=== PATIENT | female | born 1945 | race Caucasian/White ===

== ENCOUNTER → 2024-06-28 09:30 | Outpatient (REF) | payer OTHER, SELFPAY | LOC: RAD 09:30 | PROVIDERS: ATTENDING PHYSICIAN Thoracic Surgery (Cardiothoracic Vascular Surgery); FAMILY PHYSICIAN Internal Medicine | DX: Z01.810 Encounter for preprocedural cardiovascular examination (principal) | CPT/HCPCS: 75572; Q9967 ==

== ENCOUNTER 2024-07-13 04:57 | Inpatient (IN) | payer OTHER, SELFPAY ==
[2024-07-08 11:49] VITALS: BMI 22.2
[2024-07-08 13:01] LABS: % Basophils 0.5 % (0-2); % Eosinophils 1.5 % (0-6); % Immature Granulocytes 0.2 % (0-0.5); % Lymphocytes 39.9 % (20.5-51.1); % Neutrophils 47.9 % (42.2-75.2); Absolute Eosinophils 0.1 10^3/uL (0-0.7); Absolute Lymphocytes 2.4 10^3/uL (1.2-3.4); Absolute Monocytes 0.6 10^3/uL (0.1-0.6); Absolute Neutrophils 2.8 10^3/uL (1.4-6.5); Hematocrit 38.6 % (37.0-47.0); Hemoglobin 12.6 g/dL (12.0-16.0); Mean Corp Hgb Conc. 32.6 g/dL (33.0-37.0); Mean Corpuscular Hgb 28.7 pg (27.0-31.0); Mean Corpuscular Volume 87.9 fL (81.0-99.0); Mean Platelet Volume 9.6 fL (7.4-10.4); Nucleated Red Blood Cells % 0 %; Platelet Count 159 10^3/uL (130-400); Red Blood Cell Count 4.39 10^6/uL (4.20-5.40); Red Cell Dist. Width 13.6 % (11.5-14.5); White Blood Cell Count 5.9 10^3/uL (4.8-10.8)
[2024-07-08 13:05] LABS: Urine Albumin Negative (Neg - Trace); Urine Bilirubin Negative (Negative); Urine Character Clear (Clear); Urine Color Yellow; Urine Glucose Negative (Negative); Urine Ketone Negative (Negative); Urine Leukocyte Negative (Negative); Urine Nitrite Negative (Negative); Urine Occult Blood Negative (Negative); Urine Specific Gravity 1.005 (<1.030); Urine Urobilinogen Negative (Neg - 1+)
[2024-07-08 13:11] LABS: APTT 24.7 Sec (23.4-35.0); INR 0.99; PT 13.4 Sec (11.4-14.6)
--- NOTE | 2024-07-08 13:44 | CM ---
CM met w/ patient + dtrDai Cannon during PATs for planned CT Surg., 07/13.
Patient resides w/ spouse in a private, 2 AJIT.
Functionally, patient is indep. w/ ADLs, mobility with use of a SPC.
Pt. has RX plan and uses [facility] for prescription needs.
Pt. does not usually drive.
Reviewed pre and post op routines.
Soap, shower instructions and Cardiac Surg. booklet provided.
We reviewed post op restrictions to include lifting and driving.
We discussed post op MD appointments + visit from CT Transitional Care RN (if geographically available) v VN.
Plan is for CT Surgery 07/13.
Anticipated DC plan is for home w/ CT Transitional Care RN.
CM to follow.
[2024-07-08 14:18] LABS: ALT (SGPT) 29 U/L (0-35); AST (SGOT) 39 U/L (14-36); Albumin 4.4 g/dl (3.5-5.0); Alkaline Phosphatase 74 U/L (38-126); Blood Urea Nitrogen 14 mg/dl (7-17); Calcium 10.2 mg/dl (8.4-10.2); Carbon Dioxide 27 mmol/L (22-30); Chloride 105 mmol/L (98-107); Direct Bilirubin 0.4 mg/dl (0.0-0.4); Estimated Creatinine Clearance 59 ml/min; Glucose 83 mg/dl (70-99); Potassium 4.5 mmol/L (3.5-5.1); Sodium 142 mmol/L (135-145); Total Bilirubin 1.2 mg/dl (0.2-1.3); Total Protein 6.9 g/dl (6.3-8.2); eGFR > 60.00
[2024-07-08 14:21] LABS: Glycohemoglobin (HgbA1c) 5.7 % (4.0-5.6)
[2024-07-13] VITALS (20 sets, daily range): BP systolic 103–163; BP diastolic 56–80; BMI 22.1
[2024-07-13] MEDS: MAGNESIUM OXIDE 500 MG PO (05:29)
[2024-07-13] MEDS: LOPRESSOR 25 MG PO (05:29)
[2024-07-13] MEDS: PROTONIX 40 MG PO (05:29)
[2024-07-13] MEDS: BACTROBAN 2% OINTMENT 1 APPLIC NASAL ×2 (05:30→20:45)
--- NOTE | 2024-07-13 05:52 | PTCARENOTE ---
pt admitted to room 2267. VS and weight obtained. admission questions and med rec done. pt confirmed 2 showers at home and NPO since 0000. clip prep done, wiped w CHG wipes. pre-op meds given.
--- NOTE | 2024-07-13 06:07 | W.CVOR.SURPR ---
CVOR Surgeon Immed Pre Op
-
I have examined this patient prior to performance of the scheduled procedure.
The patient's condition is unchanged from the time of the dictated/written History and
Physical and the patient is able to undergo the scheduled procedure.
Robotic assisted right sided pericardial window for recurrent large pericardial effusions
[2024-07-13 08:15] LABS: Urine Albumin 1+ (Neg - Trace); Urine Bilirubin Negative (Negative); Urine Character Clear (Clear); Urine Color Yellow; Urine Glucose Negative (Negative); Urine Ketone Negative (Negative); Urine Leukocyte Negative (Negative); Urine Nitrite Negative (Negative); Urine Occult Blood Negative (Negative); Urine Urobilinogen Negative (Neg - 1+)
--- NOTE | 2024-07-13 08:25 | CM ---
Reviewed chart. Mrs. Rubio is in the operating room today. Prior to admission she resides with her spouse in a two story home with eight steps to enter. Prior to admission she was independent with adla and uses a single point cane to ambulate.
She has a single point cane at home. She has a prescription plan and uses [facility]. Medical work-up in progress. The discharge plan is to return home with her spouse and a home visit by the Transitional Care Nurse when medically stable.
--- NOTE | 2024-07-13 08:37 | W.PN.CT.SURG ---
CT Surgery Operative Note
-
CARDIAC SURGERY OPERATIVE REPORT
Preoperative Diagnosis: Recurrent pericardial effusion status post subxiphoid pericardial window
Postoperative Diagnosis: Same, large ASD, kajal plug leak with yrpa-ya-gbsmu shunt
Procedure(s) Performed:
1. Robotic assisted right side large pericardial window and pericardial drainage
2. Transesophageal echocardiography
Date of Surgery: 07/13/2024
Comorbidities:
1. Multivessel coronary artery disease with history of RCA stenting and inferior infarct
2. Ischemic cardiomyopathy
3. Hypertension
4. Hyperlipidemia
5. Chronic pericardial effusions status post subxiphoid window
6. History of PFO with percutaneous closure
7. Recurrent atrial septal defect next to the intra-atrial septal plug with large sugm-kn-jkhtm shunt
8. History of TIA
9. Frail
10. Hard of hearing
11. Recurrent pericarditis
Attending Surgeon: Sampson Joshi MD, MS
Assistants: Keira Edge PA-C (present and necessary to culture media laboratory assistant, exchanging robotic instruments, retraction, suction, exposure, suture management, and wound closure under my direction)
Anesthesiology: Alexander Downs MD and Jessica Jean CRNA
Scrub and Circulating RNs: Latrell Arias, RN, Suad Conrad, RN and Goyo Alejandra RN
Anesthesia: Dual Lumen GETA
EBL: 10 cc
Products: None
Indication(s) for Procedures: This is an 79-year-old female with a history of significant pericardial effusion of over 2 L. She had a recurrent effusion after being drained via subxiphoid window just a few years ago. Given the recurrent nature of
her effusions and symptomatology, plan was to do a robotic assisted pericardial window with drainage into the chest for symptomatic relief.
Findings: Intraoperative SMOOTH preprocedure demonstrated a large ASD of approximately 0.8 to 0.9 cm with a large kalh-qi-wgnho shunt into the right atrium. There was a moderate pericardial effusion surrounding the heart. Upon entry into the chest,
there was significant amount of redundancy of the pericardium secondary to the recurrent nature of her effusions. A large window was performed going from the ascending aorta down towards the diaphragmatic reflection at the level of the IVC. The
pericardial window performed was approximately 6 x 5 cm in size. Pericardial fluid was sent off for cytology and fluid analysis and her pericardial sac was sent off for permanent pathology.
Specimen(s):
Pericardial fluid and pericardial sac
Description of Procedure: The patient was taken to the operating room. Induction via general anesthesia with endotracheal intubation was performed and peripheral venous access and arterial monitoring were inserted. Their identity and procedure to be
performed were verified and they were positioned with the right side bumped up on the operating table. The patient was then prepped and draped in a sterile fashion. A preoperative time-out was performed with all members of the team present. A
Veress needle was used to insufflate the chest after isolating the lung. An 8 mm port was placed in the anterior axillary line at the second intercostal space towards the armpit and confirmed to be intrathoracic without significant pulmonary injury.
The chest was surveyed for any significant pericardial adhesions or pleural adhesions. Patient tolerate insufflation without complication. 2 additional 8 mm trocars were placed 1 at the fourth and 1 at the 6 intercostal space. A 12 mm corporate legal assistant
port was placed in the 11th intercostal space above the insertion of the diaphragm. There were minor pulmonary lesions to the pericardium which were taken down with electrocautery. I made a small entry point to the pericardium where it was free
from vital structures. This was then enlarged cephalad towards the pericardial reflection of the ascending aorta. At this point I switched over to a vessel sealer and took the rest the pericardium as well as the pericardial fat anteriorly heading
down towards the IVC and just anterior to the phrenic nerve. A total size of approximately 6 x 5 cm window was created. Suction was used with a Luken's trap in order to obtain pericardial fluid for analysis. A 24 Setswana Akhil drain was inserted
to the 8 mm port and threaded into the pericardial sac leaving half of the drain into the pleural space. The pericardial sac was then extracted from the chest cavity. After confirming hemostasis, the lung was fully inflated and all ports were
removed. Incisions were closed in 3 layers including the fascia, dermal, and epidermis. Additional local anesthesia was injected into all incision sites. The skin wound was cleansed and sealed with Dermabond glue.
All instrument, sponge, and needle counts were confirmed to be correct x 2 at the end of the operation. The patient was transferred to the cardiac intensive care unit extubated in critical but stable condition.
I, Dr. Sampson Joshi, was present, scrubbed for, and performed all critical elements of this procedure.
Sampson Joshi MD, MS
Cardiothoracic Surgeon
[facility]
This operative dictation was created using the [employer] dictation system. Please excuse any grammatical, typographical, or 'sound alike' errors
[2024-07-13 08:41] LABS: Urine Red Blood Cell 0-2 /HPF (0-2); Urine White Cell 0-2 /HPF (0-5)
[2024-07-13] MEDS: ANCEF 10 IV (08:56)
[2024-07-13 09:03] LABS: Hematocrit 34.2 % (37.0-47.0); Hemoglobin 11.3 g/dL (12.0-16.0); Platelet Count 144 10^3/uL (130-400)
[2024-07-13 09:04] LABS: B.E. -0.7 mmol/L; HCO3 25.4 mmol/L (21-28); Ionized Calcium 1.24 mMOL/L (1.15-1.33); O2 Saturation % 99.8 % (94-98); PCO2 47 mmHg (32-35); PO2 206 mmHg (83-108); Potassium 3.7 mMOL/L (3.5-5.1); Sodium 137 mMOL/L (136-145); pH 7.34 (7.35-7.45)
[2024-07-13 09:12] LABS: APTT 25.4 Sec (23.4-35.0); INR 0.98; PT 13.5 Sec (11.4-14.6)
--- NOTE | 2024-07-13 09:20 | PTCARENOTE ---
pt received from CVOR, drowsy but arousable. SR on the monitor, HR 60-70s. SBP 170s via Sofia, 150s via cuff. AIRCRAFT REFUELLER aware. pt on 6L SM, 100% POX. lungs clear anteriorly. CTx1, no air leak or crepitus noted, connected to suction. pt abdomen s/n, denies
n/v. purewick in place, voids. bladder scanned for 204ml. surgical sites intact. CT site c/d/i. PIV. lab work drawn, EKG performed, CXR completed. daughter at bedside. see worklist for VS, I&O, and assessment.
[2024-07-13 09:26] LABS: Blood Urea Nitrogen 10 mg/dl (7-17); Estimated Creatinine Clearance 58 ml/min; Glucose 138 mg/dl (70-99); Magnesium 2.3 mg/dl (1.6-2.3)
[2024-07-13 10:03] LABS: Body Fluid Hematocrit < 1 %; Body Fluid WBC 566 /CUMM
[2024-07-13 10:13] LABS: Body Fluid Second Tech EF
[2024-07-13] MEDS: TOPROL XL 12.5 MG PO (10:18)
[2024-07-13] MEDS: NORVASC 2.5 MG PO (10:18)
[2024-07-13] MEDS: NEURONTIN 100 MG PO ×3 (10:19→20:45)
[2024-07-13] MEDS: CRESTOR 20 MG PO (10:19)
[2024-07-13] MEDS: ROXICODONE 2.5 MG PO ×2 (10:22→14:55)
--- NOTE | 2024-07-13 10:31 | W.PN.CD ---
Addendum entered and electronically signed by Merle Vale MD 07/13/24 14:42:
I saw and examined the patient.
The PRINTING AGENT's note was reviewed and I agree with the note.
Comment: 79 y/o female (patient of Dr. Ann) with HTN, HLD, multivessel CAD (moderate LM, moderate prox LAD, hx RCA stenting and ME 2016), ICM EF 40-45% (though reported to be normal on most recent echo), PFO with hx closure 1983 with residual L-R
shunt, subsequent interatrial septal occluder with shunt, TIA, dyslipidemia, and recurrent pericardial effusions with pericardiocenteses and hx window 2022. Now s/p pericardial window. 3D lindsay intra op shows large left to right shunt through and ASD
despite occluder device in place. She is lethargic but awake with some incisional pain but otherwise wihtout complaing. Lungs cta, rrr, no le edema. I suspect her pericardial fluid may be due to increase right sided filling pressures with ASD
shunt. WIll try to add some mild diuresis. Will montior closely. otherwise issues as below.
Original Note:
Today's Communication / Plan
-
Close post-op monitoring and care per CT surgery/CVICU protocol. Monitor BP's, telemetry, volume status.
Impression / Plan
-
79 y/o female (patient of Dr. Ann) with HTN, HLD, multivessel CAD (moderate LM, moderate prox LAD, hx RCA stenting and ME 2016), ICM EF 40-45% (though reported to be normal on most recent echo), PFO with hx closure 1983 with residual L-R shunt,
subsequent interatrial septal occluder with shunt, TIA, dyslipidemia, and recurrent pericardial effusions with pericardiocenteses and hx window 2022. Now s/p pericardial window.
Recurrent pericardial effusions:
-now s/p robotic assisted right side large pericardial window and pericardial drainage, Dr. Joshi 07/13/24
-post-op EKG and telemetry stable in SR
-Per-op report: Intraoperative LINDSAY preprocedure demonstrated a large ASD of approximately 0.8 to 0.9 cm with a large qdgw-cq-xssks shunt into the right atrium. There was a moderate pericardial effusion surrounding the heart. Upon entry into the
chest, there was significant amount of redundancy of the pericardium secondary to the recurrent nature of her effusions. A large window was performed going from the ascending aorta down towards the diaphragmatic reflection at the level of the IVC.
The pericardial window performed was approximately 6 x 5 cm in size. Pericardial fluid was sent off for cytology and fluid analysis and her pericardial sac was sent off for permanent pathology.
-CT in place, on O2 by NC
Coronary artery disease:
-stable
-on ASA, statin, BB
ICM:
-EF 40-45% by echo 06/01, but normal on echo 06/07? Intra-op LINDSAY report pending.
-on BB as OP
-monitor volume
HTN:
-monitor BP's post-op
-on BB -continue
Dyslipidemia:
-continue statin
Physical Exam
Vital Signs/Labs
Vital Signs
Temp Pulse Resp BP Pulse Ox
97.8 F 60 13 164/74 100
07/13/24 08:48 07/13/24 10:18 07/13/24 10:15 07/13/24 10:18 07/13/24 10:15
07/12/24 07/13/24 07/14/24
06:59 06:59 06:59
Actual Weight 54.7 kg
07/13/24 08:50
PT 13.5 Sec (11.4-14.6) 07/13/24 08:50
INR 0.98 07/13/24 08:50
APTT 25.4 Sec (23.4-35.0) 07/13/24 08:50
Magnesium 2.3 mg/dl (1.6-2.3) 07/13/24 08:50
Physical Exam
Constitutional: No acute distress
EENT: Anicteric
Cardiovascular: Rhythm & rate is regular and Rub present
Respiratory: Respiratory effort normal and Other (on O2 by NC)
Neuro/Psych: AO x 3
Data Reviewed
-
Date of Service: July 13, 2024
EKG: Tracing Personally Visualized and interpreted (SR)
Echo: Report Reviewed by me (EF as noted )
Labs: Labs Reviewed by me
[2024-07-13 11:12] LABS: Body Fluid Glucose 101 mg/dl; Body Fluid LDH 312 U/L; Body Fluid Protein 4.1 g/dl
[2024-07-13] MEDS: LOW STRENGTH ASPIRIN 81 MG PO (12:47)
[2024-07-13] MEDS: LASIX 40 MG PO (12:47)
[2024-07-13] MEDS: FLEXERIL 5 MG PO (13:00)
[2024-07-13] MEDS: TYLENOL 1000 MG PO ×2 (13:00→20:45)
--- NOTE | 2024-07-13 13:00 | PTCARENOTE ---
pt VSS, per orders- L dhiraj Black dc'd, dressing c/d/i. pt OOB to chair, ambulated to bathroom, voids. +crepitus on R posterior back, PLATE GLASS POLISHER Suad and KEITH Crockett aware. PA and PLATE GLASS POLISHER aware of CT output. daughter and at bedside. PRN Flexeril given for
pain.
[2024-07-13] MEDS: ANCEF IV (13:02)
[2024-07-13] MEDS: ANCEF 5 IV ×2 (15:29→23:51)
[2024-07-13] MEDS: PACERONE 200 MG PO ×2 (15:29→20:45)
--- NOTE | 2024-07-13 16:04 | PTCARENOTE ---
pt VSS, no changes in assessment. R posterior back crepitus remains the same. pt c/o pain, received PRN Roxicodone 2.5mg PO. pt using BSC to void. pt placed back to bed per request. daughter at bedside.
--- NOTE | 2024-07-13 17:30 | PTCARENOTE ---
pt OOB to chair for dinner, voids on BSC.
--- NOTE | 2024-07-13 20:02 | PTCARENOTE ---
received pt from previous rn. VSS, Pt AAOx4, NSR/ Sinus Pee HR 50-60s. lungs clear throughout pox 96% on RA, CTx1 set to -20cm suction, no air leak/tidaling, slight crepitus noted around CT site, +bs, voids, all surgical sites intact, pivx1
intact, plan of care discussed questions encouraged.
[2024-07-13] MEDS: SENOKOT-S 1 TABLET PO (20:44)
[2024-07-13] MEDS: KCL 40 MEQ PO (20:45)
[2024-07-14] VITALS (20 sets, daily range): BP systolic 90–118; BP diastolic 42–67; BMI 21.8
--- NOTE | 2024-07-14 01:34 | PTCARENOTE ---
Pt oob with one assist to BSC,voiding janell urine + flatus.VS all stable,afebrile.Right lateral chest tube intact,suction maintained.Pt on room air,O2 sat 95%.Physical assessment preformed,pt can turn with minimal assist.Medicated with Roxycodone
2.5mg for right lat chest tube area pain with + relief.Bed alarm intact.Close observation ongoing throughout the night.
[2024-07-14] MEDS: ROXICODONE 2.5 MG PO (01:44)
--- NOTE | 2024-07-14 03:17 | W.PN.CT ---
Today's Communication / Plan
-
-pod #1
-no issues overnight
-med CT output 55/350 in 12/24 hrs
-BMP pending
-current meds (ASA, Crestor, Toprol, Amio, Norvasc, Lasix 40 po qd, Protonix)
-follow pathology
-encourage IS, OOB
Assessment / Plan
-
- Recurrent pericardial effusion - s/p Robotic assisted right side large pericardial window and pericardial drainage by Dr. Joshi on 07/13/24, pod #1
- Intraop SMOOTH: large ASD of approximately 0.8 to 0.9 cm with a large fvzs-hp-lxuhj shunt into the right atrium. There was a moderate pericardial effusion surrounding the heart. Upon entry into the chest, there was significant amount of redundancy
of the pericardium secondary to the recurrent nature of her effusions.
- Multivessel coronary artery disease with history of RCA stenting and inferior infarct
- Ischemic cardiomyopathy
- Hypertension
- Hyperlipidemia
- Chronic pericardial effusions status post subxiphoid window
- History of PFO with percutaneous closure
- Recurrent atrial septal defect next to the intra-atrial septal plug with large vbsp-oe-zvcrz shunt
- History of TIA
- Frail
- Hard of hearing
- Recurrent pericarditis
- Acute postop blood loss anemia- stable, no transfusion
- Acute postop atelectasis
Discussed patient care with: Nursing and Care Team
Subjective
-
Date of Service: July 14, 2024
Objective Data
-
PT 13.5 Sec (11.4-14.6) 07/13/24 08:50
INR 0.98 07/13/24 08:50
APTT 25.4 Sec (23.4-35.0) 07/13/24 08:50
Vital Signs
Vital Signs
Temp Pulse Resp BP Pulse Ox
97.9 F 55 18 110/66 95
07/13/24 23:59 07/14/24 00:30 07/13/24 23:59 07/13/24 23:59 07/14/24 01:30
CT Intake/Output/Weight
07/13/24 07/13/24 07/14/24
06:59 18:59 06:59
Intake Total 960 / 1080 120 / 1080
Output Total 2029 / 0 420 / 2450
Balance -1070 / -1370 -300 / -1370
SaO2: 95
Physical Exam
-
General: Awake and AOx3
Cardiovascular: Regular rate & rhythm, No Murmurs and Rub
Respiratory: Decreased Breath Sounds
Incision: Clean, Dry and Intact
Extremities: No Edema (2+PTs b/l)
Abdomen: soft, nontender, nondistended
Data Reviewed
-
Lab Results: Results Reviewed
Medications: Active Meds Reviewed
Chest X-Ray: Report Reviewed and Image Reviewed
ECG: Report Reviewed and Image Reviewed
[2024-07-14 04:06] LABS: Hematocrit 38.8 % (37.0-47.0); Hemoglobin 13.3 g/dL (12.0-16.0); Mean Corp Hgb Conc. 34.3 g/dL (33.0-37.0); Mean Corpuscular Hgb 29.4 pg (27.0-31.0); Mean Corpuscular Volume 85.8 fL (81.0-99.0); Mean Platelet Volume 9.7 fL (7.4-10.4); Platelet Count 184 10^3/uL (130-400); Red Blood Cell Count 4.52 10^6/uL (4.20-5.40); Red Cell Dist. Width 13.6 % (11.5-14.5); White Blood Cell Count 14.1 10^3/uL (4.8-10.8)
[2024-07-14 04:30] LABS: Blood Urea Nitrogen 16 mg/dl (7-17); Calcium 9.9 mg/dl (8.4-10.2); Carbon Dioxide 29 mmol/L (22-30); Chloride 100 mmol/L (98-107); Estimated Creatinine Clearance 50 ml/min; Glucose 173 mg/dl (70-99); Magnesium 2.4 mg/dl (1.6-2.3); Potassium 4.7 mmol/L (3.5-5.1); Sodium 137 mmol/L (135-145); eGFR > 60.00
[2024-07-14] MEDS: TYLENOL 1000 MG PO ×3 (06:35→22:38)
[2024-07-14] MEDS: NORVASC PO (07:43)
[2024-07-14] MEDS: LASIX 40 MG PO (07:49)
[2024-07-14] MEDS: ANCEF 5 IV (07:50)
[2024-07-14] MEDS: NEURONTIN 100 MG PO ×2 (07:51→16:46)
[2024-07-14] MEDS: CRESTOR 20 MG PO (07:51)
[2024-07-14] MEDS: MAGNESIUM OXIDE 500 MG PO ×2 (07:52→20:27)
[2024-07-14] MEDS: SENOKOT-S 1 TABLET PO ×2 (07:52→20:27)
[2024-07-14] MEDS: PACERONE 200 MG PO ×3 (07:52→22:38)
[2024-07-14] MEDS: LOW STRENGTH ASPIRIN 81 MG PO (07:52)
[2024-07-14] MEDS: PROTONIX 40 MG PO (07:52)
--- NOTE | 2024-07-14 08:00 | PTCARENOTE ---
~0195-0273: Received patient from nightsnhft RN. Patient AOx4, SB/NSR 50s-60s on tele, RA satting high 90s. R lateral CT in place -20 sx, 30cc serosanguinous drainage out, + crepitus at the site, no tidaling or airleak noted at this time. pain
managed with scheduled tylenol and PRNs per patient. Bowel sounds present, flatus passed. Lungs clear on L side throughout, fine crackles on R side. Pt Ax1 with cane OOB to chair and commode. Patient attempt to void, unsuccessful. Bladder scanned
~200cc. Norvasc held per PA-C d/t patient SBP 107. Instructed to give lasix PO first then monitor BP and then give toprol XL once 'ok.' All nees met at this time, call tello within reach.
~[id number]: Patient OOB to commode with Ax1, patient did c/o some dizziness at this time, void 300cc. Patient now back in bed. Spouse at bedside. All needs met at this time, call tello within reach.
--- NOTE | 2024-07-14 08:36 | W.PN.ANS.POP ---
Anesthesia Post Operative
- Anesthesia Post Op Note
Vital Signs Stable-See Nursing Note: Yes
Airway Patent: Yes
Adequate Pain Control: Yes
Change in Mental Status: No
Current Postoperative Nausea & Vomiting: No
Anesthesia Complications: No
General Anesthetic Recall: No
Unplanned Admission: No
Post Op Hydration Adequate: Yes
- -
pt OOB in chair and sleeping. SR on monitor and VSS.
[2024-07-14] MEDS: BACTROBAN 2% OINTMENT 1 APPLIC NASAL ×2 (08:40→20:27)
[2024-07-14] MEDS: LIDOCAINE 4% PATCH 1 PATCH TOPICAL (08:57)
[2024-07-14] MEDS: TOPROL XL 25 MG PO (09:26)
--- NOTE | 2024-07-14 10:37 | W.PN.CD ---
Today's Communication / Plan
-
continue PO lasix
trend tele
Impression / Plan
-
79 y/o female (patient of Dr. Ann) with HTN, HLD, multivessel CAD (moderate LM, moderate prox LAD, hx RCA stenting and [place] 2017), ICM EF 40-45% (though reported to be normal on most recent echo), PFO with hx closure 1983 with residual L-R shunt,
subsequent interatrial septal occluder with shunt, TIA, dyslipidemia, and recurrent pericardial effusions with pericardiocenteses and hx window 2022. Now s/p pericardial window.
Recurrent pericardial effusions:
-now s/p robotic assisted right side large pericardial window and pericardial drainage, Dr. Joshi 07/13/24
-post-op EKG and telemetry stable in SR
-Per-op report: Intraoperative SMOOTH preprocedure demonstrated a large ASD of approximately 0.8 to 0.9 cm with a large scpx-gc-qqvwp shunt into the right atrium. There was a moderate pericardial effusion surrounding the heart. Upon entry into the
chest, there was significant amount of redundancy of the pericardium secondary to the recurrent nature of her effusions. A large window was performed going from the ascending aorta down towards the diaphragmatic reflection at the level of the IVC.
The pericardial window performed was approximately 6 x 5 cm in size. Pericardial fluid was sent off for cytology and fluid analysis and her pericardial sac was sent off for permanent pathology.
-CT in place, on O2 by NC
-lasix 40mg PO daily added
Coronary artery disease:
-stable
-on ASA, statin, BB
ICM:
-EF 40-45% by echo 06/01, and 45% on intra op SMOOTH
-on BB as OP
-monitor volume
HTN:
-monitor BP's post-op
-on BB -continue
Dyslipidemia:
-continue statin
Physical Exam
Vital Signs/Labs
Vital Signs
Temp Pulse Resp BP Pulse Ox
98.1 F 56 16 109/57 96
07/14/24 07:39 07/14/24 09:30 07/14/24 08:00 07/14/24 09:26 07/14/24 08:00
07/13/24 07/14/24 07/15/24
06:59 06:59 06:59
Actual Weight 54.7 kg 54.1 kg
07/14/24 03:44
07/14/24 03:44
PT 13.5 Sec (11.4-14.6) 07/13/24 08:50
INR 0.98 07/13/24 08:50
APTT 25.4 Sec (23.4-35.0) 07/13/24 08:50
Magnesium 2.4 mg/dl (1.6-2.3) H 07/14/24 03:44
Physical Exam
Constitutional: No acute distress and Comfortable
EENT: Moist mucous membranes
Cardiovascular: Rhythm & rate is regular, Pedal edema is absent, JVD pressure is normal and Systolic murmur present
Respiratory: Respiratory effort normal and Lungs clear to auscul.
Neuro/Psych: AO x 3
Data Reviewed
-
Date of Service: July 14, 2024
EKG: Other (Tele: SB 50s, brief NSVT)
Labs: Labs Reviewed by me
--- NOTE | 2024-07-14 10:51 | PTCARENOTE ---
Report given to Indira Rain.
--- NOTE | 2024-07-14 11:15 | PTCARENOTE ---
Assumed care of patient. Pt assessed while she was lying in bed. Pt alert and oriented x4. SB on tele with rates 50s-60s. BP 113/58. POX 96% on RA. Lungs diminished throughout. No cough noted. Abdomen soft, nontender. Hypoactive BS. Pt voiding
yellow urine in the toilet. Right lateral chest incision and old chest tube site covered CDI. PIV x1 intact. See MAR for medication administration. See worklist for complete nursing assessment. Plan of care reviewed and patient in agreement.
--- NOTE | 2024-07-14 17:00 | PTCARENOTE ---
Pt reassessed. SB on tele with rates in the 50s. BP 96/46. POX 95% on RA. Pt assisted to the bathroom, voided clear janell urine, stated she felt dizzy, CT MANAGER FREELANCE notified. Assisted to the chair, chair alarm in place.
--- NOTE | 2024-07-14 17:05 | CM ---
Reviewed chart. Met with Mrs. Saul to review discharge plans. She states she is feeling well. She states prior to admission she resides with her spouse in a two story home with four steps to enter. She states she has a full flight of steps to
get to bedroom/full bathroom. She states prior to admission she ambulates with a single point cane. She states she has a single point cane and walker at home. She states she has a prescription plan and uses [facility]. We reviewed a home
visit by the Transitional Care Nurse. She states she may not want to have the nurse come out. Medical work up in progress. The discharge plan is to return home with her spouse and a home visit by the Transitional Care Nurse if she is agreeable.
--- NOTE | 2024-07-14 21:09 | PTCARENOTE ---
Rec'd pt at change of shift. Pt AAO*3, VSS, and sinus gavin on TELE monitor. Pt denies any pain or discomfort. R chest wall dressing CDI. Pt updated on plan of care and resting with call tello in reach. Plan of care ongoing.
[2024-07-15] MEDS: TYLENOL 1000 MG PO (05:22)
[2024-07-15 05:26] VITALS: BP 98/54
[2024-07-15 05:27] VITALS: BP 98/54
[2024-07-15 06:01] LABS: Hemoglobin 11.7 g/dL (12.0-16.0); Mean Corp Hgb Conc. 33.4 g/dL (33.0-37.0); Mean Corpuscular Hgb 29.5 pg (27.0-31.0); Mean Corpuscular Volume 88.4 fL (81.0-99.0); Mean Platelet Volume 9.7 fL (7.4-10.4); Platelet Count 169 10^3/uL (130-400); Red Blood Cell Count 3.96 10^6/uL (4.20-5.40); Red Cell Dist. Width 14.1 % (11.5-14.5); White Blood Cell Count 13.8 10^3/uL (4.8-10.8)
[2024-07-15 06:23] LABS: Blood Urea Nitrogen 24 mg/dl (7-17); Calcium 9.4 mg/dl (8.4-10.2); Carbon Dioxide 30 mmol/L (22-30); Chloride 103 mmol/L (98-107); Estimated Creatinine Clearance 39 ml/min; Glucose 114 mg/dl (70-99); Magnesium 2.9 mg/dl (1.6-2.3); Potassium 4.3 mmol/L (3.5-5.1); Sodium 138 mmol/L (135-145); eGFR > 60.00
[2024-07-15 06:46] VITALS: BMI 22.1
[2024-07-15 06:48] VITALS: BP 106/56
--- NOTE | 2024-07-15 07:39 | W.PN.CT ---
Today's Communication / Plan
-
-pod#2
-no issues overnight, wants to go home
-labs are stable
-ambulate
-likely d/c soon
Assessment / Plan
-
- Recurrent pericardial effusion - s/p Robotic assisted right side large pericardial window and pericardial drainage by Dr. Joshi on 07/13/24, pod #2
- Intraop SMOOTH: large ASD of approximately 0.8 to 0.9 cm with a large xuic-rh-bqjgj shunt into the right atrium. There was a moderate pericardial effusion surrounding the heart. Upon entry into the chest, there was significant amount of redundancy
of the pericardium secondary to the recurrent nature of her effusions.
- Multivessel coronary artery disease with history of RCA stenting and inferior infarct
- Ischemic cardiomyopathy
- Hypertension
- Hyperlipidemia
- Chronic pericardial effusions status post subxiphoid window
- History of PFO with percutaneous closure
- Recurrent atrial septal defect next to the intra-atrial septal plug with large cyao-xi-qskhf shunt
- History of TIA
- Frail
- Hard of hearing
- Recurrent pericarditis
- Acute postop blood loss anemia- stable, no transfusion
- Acute postop atelectasis
Discussed patient care with: Nursing and Care Team
Subjective
-
Date of Service: July 15, 2024
Objective Data
-
Lab Results
07/15/24 05:41
07/15/24 05:41
PT 13.5 Sec (11.4-14.6) 07/13/24 08:50
INR 0.98 07/13/24 08:50
APTT 25.4 Sec (23.4-35.0) 07/13/24 08:50
Vital Signs
Vital Signs
Temp Pulse Resp BP Pulse Ox
97.9 F 52 16 98/54 99
07/15/24 06:46 07/15/24 05:27 07/15/24 06:46 07/15/24 05:27 07/15/24 06:46
CT Intake/Output/Weight
07/14/24 07/15/24 07/15/24
18:59 06:59 18:59
Output Total 630 / 630
Balance -630 / -630
SaO2: 99
Physical Exam
-
General: Awake and AOx3
Cardiovascular: Regular rate & rhythm, No Murmurs and No Rub
Respiratory: Decreased Breath Sounds
Incision: Clean, Dry and Dressing Intact
Extremities: No Edema
Data Reviewed
-
Lab Results: Results Reviewed
Medications: Active Meds Reviewed
Chest X-Ray: Report Reviewed and Image Reviewed
ECG: Report Reviewed and Image Reviewed
[2024-07-15] MEDS: LOW STRENGTH ASPIRIN 81 MG PO (08:24)
[2024-07-15] MEDS: PACERONE 200 MG PO (08:25)
[2024-07-15] MEDS: SENOKOT-S 1 TABLET PO (08:25)
[2024-07-15] MEDS: PROTONIX 40 MG PO (08:26)
[2024-07-15] MEDS: MAGNESIUM OXIDE 500 MG PO (08:26)
[2024-07-15] MEDS: LIDOCAINE 4% PATCH TOPICAL (08:32)
--- NOTE | 2024-07-15 08:40 | W.DCSUMMARY ---
Discharge Summary
Discharge Data
Date of Admission: 07/13/24
Date of Discharge: 07/15/24
-
Pending Results: No
Hospital Course
Primary care physician: Sathish Melton
Outpatient embosser apprentice: Rubin Ann
Inpatient consultants: [facility]
Procedures:
1. pericardial window
Primary Diagnosis:
1. Pericardial effusion
Secondary Diagnoses:
1. Coronary artery disease with drug-eluting stent to RCA (2017)
2. Hypertension
3. Hyperlipidemia
4. Percutaneous closure of PFO with residual ckcwa-dy-lzkw shunt
5. TIA with residual repetitiveness and confusion
6. Osteoporosis
7. Recurrent pericarditis
HPI: 79-year-old female electively admitted 07/14/24 for pericardial window due to recurrent pericardial effusion
Hospital course: Patient underwent a robotic assisted right pericardial window by Dr. Sampson Joshi. Patient was extubated in the operating room patient experienced no complications. Chest tubes were removed on postoperative day 1. Patient
complained of pain and mild dizziness and kept in hospital for observation. Postoperative day 2, patient felt much better and is stable for discharge to home. Given prescription for BMP. post discharge.
Home medication changes:
none
Discharge Plan
-
Patient Disposition: Home (Routine Discharge)
Discharge Diagnosis/Procedures: pericardial window
Condition: Good
Diet: Low Cholesterol and Low Sodium
Activity: No strenuous activity
Driving Restrictions: Not until seen by your Dr
Bathing Restrictions: OK to Shower
Blood Work: BMP in 1 week
Other Services: Cardiac Rehab
Specialty Instructions: Weigh Daily- Call MD for wt gain/loss 3 lbs overnight/5 lbs in 1 week
Referrals:
CT Transitional Care Nurse [Outside] - in one to two days
(
The Cardiothoracic Transitional Care Nurse will call you to set up a visit in 1-2 days.)
Sathish Melton MD [Family Provider] - in four to six weeks (Please make an appontment in four to six weeks. )
Rubin Ann MD [Active] - 08/11/24 1:20 pm
Sampson Joshi MD [Active] - 07/27/24 1:30 pm
Prescriptions:
New
oxycodone 5 mg Tablet
5 mg PO Q4HPRN PRN (Reason: severe pain) Qty: 10 0RF
Continued
aspirin 81 mg Tablet,Delayed Release (Dr/Ec)
81 mg PO DAILY
metoprolol succinate 25 mg Tablet Extended Release 24 Hr
25 mg PO DAILY
rosuvastatin [Crestor] 20 mg Tablet
20 mg PO DAILY
acetaminophen 325 mg Tablet
650 mg PO Q6HPRN PRN (Reason: pain) Qty: 0 0RF
Discharge Orders:
Discharge Patient (As Directed); Ordered 07/15/24
Ordered By: Madelin Coronel
Care Plan Goals
Care Plan Goals:
Problem: Readiness for enhanced knowledge related to diagnosis and treatment plan
Goal: Understand your diagnosis and treatment plan needs, including medications if applicable.
Instructions: Know your diagnosis, underlying causes and treatment plan options, including medications if applicable. Consult with your health care team to learn about your diagnosis and treatment plan, including medications if applicable.
Discharge Date and Time
Print Language: PALESTINIAN
[2024-07-15] MEDS: CRESTOR 20 MG PO (08:49)
[2024-07-15] MEDS: NORVASC 2.5 MG PO (08:50)
[2024-07-15] MEDS: BACTROBAN 2% OINTMENT 1 APPLIC NASAL (08:50)
[2024-07-15] MEDS: LASIX 40 MG PO (08:50)
[2024-07-15] MEDS: TOPROL XL 25 MG PO (08:50)
[2024-07-15 11:51] VITALS: BP 97/50
--- NOTE | 2024-07-15 11:53 | PTCARENOTE ---
New dry sterile gauze dsg and tegaderm applied to R lateral chest. Incision sites x 4 noted, approximated, small amt serosang (very light pink) drainage from 2 of the sites. Cleansed around sites with 2 % CHG swab. Pt took shower with assist, jasvir
well. Denies SOB.
== END 2024-07-15 12:23 | disposition home or self-care (01) | DRG 271 ==
LOC: IVU 04:57
PROVIDERS: Anesthesiology; Clinical Nurse Specialist Acute Care; ADMITTING PHYSICIAN Thoracic Surgery (Cardiothoracic Vascular Surgery); FAMILY PHYSICIAN Internal Medicine
PROC: 0W9D40Z Drainage of Pericardial Cavity with Drainage Device, Percutaneous Endoscopic Approach (ICD-10-PCS; 2024-07-13)
PROC: B24BZZ4 Ultrasonography of Heart with Aorta, Transesophageal (ICD-10-PCS; 2024-07-13)
DX: T82.538A Leakage of other cardiac and vascular devices and implants, initial encounter (principal); D62 Acute posthemorrhagic anemia; I31.39 Other pericardial effusion (noninflammatory); Q21.12 Patent foramen ovale; J98.11 Atelectasis; Y71.8 Miscellaneous cardiovascular devices associated with adverse incidents, not elsewhere classified; I70.0 Atherosclerosis of aorta; I25.10 Atherosclerotic heart disease of native coronary artery without angina pectoris; I25.5 Ischemic cardiomyopathy; I10 Essential (primary) hypertension; E78.5 Hyperlipidemia, unspecified; Z86.73 Personal history of transient ischemic attack (TIA), and cerebral infarction without residual deficits; Z95.5 Presence of coronary angioplasty implant and graft
CPT/HCPCS: 88305; 36415; 71045; 80048; 80053; 81003; 81015; 82248; 82330; 82565; 82805; 82945; 82947; 83036; 83615; 83735; 84132; 84157; 84302; 84520; 85014; 85018; 85025; 85027; 85049; 85610; 85730; 86850; 86900; 86901; 86920; 87015; 87070; 87075; 87102; 87116; 87205; 87206; 88112; 89051; 93005; 93312; 93320; 93325